=== PATIENT | female | born 1990 | race Caucasian/White ===

== ENCOUNTER 2024-03-25 17:16 | Emergency (ER) | payer SELFPAY ==
[2024-03-25] MEDS: Acetaminophen 500 MG Tab PO ONE (18:01)
[2024-03-25] MEDS ORDERED: Iopamidol 612 MG/ML 100 ML Bottle IVPUSH ONE (18:40)
[2024-03-25] MEDS: Hydrochlorothiazide 25 MG Tab PO ONE ×2 (18:54→19:03)
== END 2024-03-25 19:07 | disposition home or self-care (01) ==
LOC: DL.ED 17:16
DX: S93.431A Sprain of tibiofibular ligament of right ankle, initial encounter (principal); Z88.2 Allergy status to sulfonamides; Z88.5 Allergy status to narcotic agent; Z88.6 Allergy status to analgesic agent; Z88.8 Allergy status to other drugs, medicaments and biological substances; W19.XXXA Unspecified fall, initial encounter
CPT/HCPCS: 73610; 99282; 99283; A9270